=== PATIENT | female | born 1945 ===

== ENCOUNTER 2025-03-07 08:00 | Inpatient (IN) | payer OTHER ==
[~2025-03-07] VITALS: Ht 167.6 cm; Wt 86.2 kg
[2025-03-07 09:24] LABS: URINE APPEARANCE Clear; URINE BILIRRUBIN Negative (NEGATIVE); URINE BLOOD Negative; URINE COLOR Yellow; URINE GLUCOSE Negative (NEGATIVE); URINE KETONE Negative (NEGATIVE); URINE LEUKOCYTE Moderate; URINE NITRATE Negative; URINE PROTEIN Negative (NEGATIVE); URINE UROBILINOGEN 0.2 E.U./dl
[2025-03-07 09:29] LABS: URINE BACTERIA 860.2 uL (0.0-1933); URINE EPITHELIAL CELLS 31.3 uL (0.0-38.8); URINE RBC 2.2 uL (0.0-20.8); URINE WBC 113.9 uL (0.0-23.2)
[2025-03-07 09:30] LABS: BASO % 0.4 % (0.1-1.2); EOS # 0.55 (0.04-0.54); EOS % 4.1 % (0.7-7.0); HEMATOCRIT 38.3 % (34.1-44.9); LYMPH # 3.11 (1.18-3.74); LYMPH % 23.2 % (19.3-53.1); MEAN CORPUSCULAR HEMOGLOBIN 29.8 pg (25.6-32.2); MONO # 0.97 (0.24-0.82); MONO % 7.2 % (4.7-12.5); NEUT # 8.65 (1.56-6.13); NEUT % 64.8 % (34.0-71.1); PLATELET COUNT 253 K/uL (163-369); RED BLOOD COUNT 4.36 M/uL (3.93-5.22); RED CELL DISTRIBUTION WIDTH 13.4 % (11.6-14.4)
[2025-03-07 09:47] LABS: INR 1.05; PARTIAL THROMBOPLASTIN TIME 26.2 SECONDS (22.0-34.0); PROTHROMBIN TIME 11.4 SECONDS (9.0-11.5)
[2025-03-07] MEDS ORDERED: COZAAR100 MG PO (09:59)
[2025-03-07] MEDS ORDERED: GLIPIZIDE XL5 MG PO (09:59)
[2025-03-07] MEDS ORDERED: CARVEDILOL6.25 MG (10:00)
[2025-03-07] MEDS ORDERED: PRAVASTATIN SOD40 MG PO (10:01)
[2025-03-07] MEDS ORDERED: SYNTHROID50 MCG PO (10:01)
[2025-03-07 10:06] VITALS: BP 152/83
[2025-03-07 10:36] LABS: ALBUMIN 3.7 gm/dL (3.4-5.0); BILIRUBIN TOTAL 0.43 mg/dL (0.3-1.2); CALCIUM 9.8 mg/dL (8.5-10.1); CREATININE SERUM 1.03 mg/dL (0.55-1.02); GFR 51.96; GLOBULINA 4.1 G/DL (2.4-3.5); POTASSIUM 4.63 mEq/L (3.5-5.1); TOTAL PROTEIN 7.8 gm/dL (6.4-8.2)
[2025-03-10] MEDS ORDERED: CEFAZOLIN SODIUM 1,000 MG VIAL ONE ×2 (08:57→17:43)
[2025-03-10] MEDS ORDERED: TRANEXAMIC ACID 100MG/1ML (1000MG) AMPUL IV ONE (08:57)
[2025-03-10 09:38] LABS: RH POSITIVE
[2025-03-10] MEDS ORDERED: KETOROLAC TROMETHAMINE 60 MG VIAL IM ONE (11:48)
[2025-03-10] MEDS ORDERED: VANCOMYCIN HCL 1,000 MG VIAL ONE (11:48)
[2025-03-10] MEDS ORDERED: MORPHINE SULFATE 4 MG/ML VIAL IV ONE ×2 (13:00→14:20)
[2025-03-10] MEDS ORDERED: GENTAMICIN SULFATE 40 MG/ML VIAL IV SCH (14:44)
[2025-03-10] MEDS ORDERED: ONDANSETRON HCL 2 MG/ML VIAL IV PRN (14:45)
[2025-03-10] MEDS ORDERED: MORPHINE SULFATE 4 MG/ML CARTRIDGE IV PRN (14:45)
[2025-03-10] MEDS ORDERED: MORPHINE SULFATE 2 MG/ML SYRINGE IV ONE (14:45)
[2025-03-10] MEDS ORDERED: SODIUM CHLORIDE 0.45 % 1,000 ML IV SCH (14:45)
[2025-03-10] MEDS ORDERED: CEFAZOLIN SODIUM 1,000 MG VIAL IV SCH (18:00)
[2025-03-10 21:51] VITALS: BP 119/70; O2SAT 99
[2025-03-11] VITALS: BP 141/78; O2SAT 98
[2025-03-11] MEDS ORDERED: LEVOTHYROXINE SODIUM 50 MCG TABLET PO SCH (06:00)
[2025-03-11] MEDS ORDERED: BACTRIM DS TAB1 EACH PO (07:49)
[2025-03-11] MEDS ORDERED: TRAM1TAB98 PO (07:51)
[2025-03-11 08:35] VITALS: BP 119/73; O2SAT 96
[2025-03-11] MEDS ORDERED: LOSARTAN POTASSIUM 100 MG TABLET PO SCH (09:00)
[2025-03-11] MEDS ORDERED: IRON FUM,PS/FOLIC/BCOMP,C NO.9 1 CAP CAPSULE PO SCH (09:00)
[2025-03-11] MEDS ORDERED: SENNA/DOCUSATE SODIUM 1 TAB TABLET PO SCH (09:00)
[2025-03-11] MEDS ORDERED: GLIPIZIDE 2.5 MG PO SCH (09:00)
[2025-03-11] MEDS ORDERED: BACITRACIN 28.35 GM OINT.TUBE TOP SCH (09:00)
[2025-03-11] MEDS ORDERED: RIVAROXABAN 10 MG TAB PO SCH (09:00)
[2025-03-11] MEDS ORDERED: CARVEDILOL 6.25 MG TABLET PO SCH (09:00)
== END 2025-03-11 15:10 | disposition home or self-care (01) | DRG 483 ==
LOC: SURH 03-10 08:00 → O/R 03-10 08:28 → SURH 03-10 13:00 → SURG 03-10 15:37
PROVIDERS: ADMIT Orthopaedic Surgery Sports Medicine; ATTEND Orthopaedic Surgery Sports Medicine
PROC: 0LS10ZZ Reposition Right Shoulder Tendon, Open Approach (ICD-10-PCS; 2025-03-10)
PROC: 0PUC0JZ Supplement Right Humeral Head with Synthetic Substitute, Open Approach (ICD-10-PCS; 2025-03-10)
PROC: 0RRJ00Z Replacement of Right Shoulder Joint with Reverse Ball and Socket Synthetic Substitute, Open Approach (ICD-10-PCS; principal; 2025-03-10 13:00)
DX: M19.011 Primary osteoarthritis, right shoulder (principal)